=== PATIENT | female | born 1975 | race Caucasian/White ===

== ENCOUNTER → 2021-05-21 | Outpatient (CLI) | payer OTHER ==
[~2021-05-21] MED LIST: ANAPROX PO; AROMASIN25 MG PO; BACLOFEN 10 MG10 MG PO; BACLOFEN20 MG PO; CALCIUM500 MG PO; CELEXA40 MG PO; CIPROFLOXACIN500 M1 PO; CLONAZEPAM 0.50.5 M1 PO; GARAMYCIN5 ML OP; HYDROCODON-ACE1 EAC5 PO; HYDROXYZINE HCL25 M1 PO; IBUPROFEN 600600 M1 PO; LEXAPRO 10 MG T10 M1 PO; LIPITOR10 MG PO; LORTAB 5 MG/5001 TAB PO; MOBIC15 MG PO; NEURONTIN 300M300 M2 PO; NORCO 5-325 TA1 EACH PO; NORFLEX100 MG PO; ONDANSETRON ODT4 MG PO; OXYCODONE HCL20 M1 PO; OXYCONTIN20 M1 PO; RITALIN20 MG PO; TRIAMCINOLONE10 G1; VICODIN; VIIBRYD10 MG PO; VITAMIN D 5050000 I1 PO; XANAX 0.25 MG0.25 MG PO; ZANAFLEX4 M1 PO; ZOFRAN ODT4 MG PO
== END ==
LOC: LAB 05:37
PROVIDERS: ATTEND Student in an Organized Health Care Education/Training Program
DX: U07.1 COVID-19 (principal)

== ENCOUNTER 2021-05-24 06:07 | Observation (INO) | payer OTHER ==
[~2021-05-24] VITALS: Ht 167.6 cm; Wt 82.6 kg
[2021-05-24 06:49] VITALS: BP 131/78
[2021-05-24 15:57] VITALS: BP 98/57
[2021-05-24 19:53] VITALS: BP 159/89
--- NOTE | 2021-05-25 04:09 | NUR ---
ASSUMED PT CARE THIS PM. PT IS ALERT AND ORIENTED X4. PT HAS DRSG TO THE CHEST WHICH IS C/D/I. PT HAS [address] PT C/O PAIN AND ANXIETY WHICH WASW MANAGED BY MEDS. PT DID NOT VERBALIZE ANY OTHER CONCERNS. PT IS ON RA. FALL PRECAUTIONS IN PLACE. WILL CONTINUE TO MONITOR.
[2021-05-25 08:54] VITALS: BP 163/91
[2021-05-25] MEDS ORDERED: PERCOCET PO (10:28)
--- NOTE | 2021-05-25 11:25 | NUR ---
CARE TAKEN OVER FOR PATIENT THIS MORNING. NO COMPLAINTS AT THAT TIME. PATIENT IS AMBULATING WITH STAND BY ASSISTANCE TO BATHROOM WITHOUT ISSUES. SPOKE WITH MILLER [facility] FLOUR AND PATIENT WILL BE DISCHARAGED TO A FACILITY. TRANSPORTATION WAS SET UP FOR 1330.
--- NOTE | 2021-05-25 11:31 | NUR ---
PATIENT CARE TAKEN OVER THIS AM. PATIENT CALLING OUT FOR PAIN MEDICATION. PATIENT TOLERATING FOOD, AND AMBULATION AROUND ROOM TO BATHROOM. AFTER SPEAKING WITH SURGEON PATIENT WILL BE DISCHARGED HOME.
[2021-05-25 11:48] VITALS: BP 163/91
--- NOTE | 2021-05-26 14:43 | O ---
[facility] [place] [address] OPERATIVE REPORT Name: JULIETTE ZAVALA Room #: 442-P [facility] Yao Jauregui#: [id number] Admission: 05/24/21 Attend Phys: Jasmina Stoner DO Discharge: 05/25/21 Date of : 73 Report #: [id number] THIS REPORT FOR: cc: Marlyn Carlton Christine L. DO Fisher,Jasmina Bruno DO ~ DATE OF SERVICE: 05/24/2021 PREOPERATIVE DIAGNOSIS: Metastatic left breast cancer. POSTOPERATIVE DIAGNOSIS: Metastatic left breast cancer. PROCEDURES: 1. Left modified radical mastectomy. 2. Prophylactic right simple mastectomy. SURGEON: Jasmina Stoner DO ANESTHESIA: General endotracheal. SPECIMENS: 1. Left breast. 2. Left axillary contents. 3. Right breast. DRAINS: LUCINA drain x3. (1. Left axilla. 2. Left breast. 3. Right breast). COMPLICATIONS: None. ESTIMATED BLOOD LOSS: 200 mL. INDICATIONS FOR PROCEDURE: The patient is a 45-year-old female who was referred to me with a history of left metastatic breast cancer with a positive lymph node as well as bony metastasis. The patient has undergone neoadjuvant chemotherapy. She was presented from my office for left mastectomy with axillary dissection and prophylactic right mastectomy. She was explained the procedure including risks, benefits and alternatives. All questions were answered to the patient's satisfaction. Informed consent was obtained. DESCRIPTION OF PROCEDURE: After the patient was brought back to the operating room and placed in supine position. General anesthesia was induced. SCDs were placed on bilateral extremities and prophylactic antibiotics were administered. Next, after a timeout was performed, after the chest wall was prepped and draped [facility] [address] [place] [address] OPERATIVE REPORT Name: JULIETTE ZAVALA Room #: 442-P [facility] Yao Jauregui#: [id number] Admission: 05/24/21 Attend Phys: Jasmina Stoner DO Discharge: 05/25/21 Date of : 73 Report #: [id number] in the usual sterile fashion. I used a marking pen and created elliptical gunderson around each breast and nipple areolar complex in order to have a symmetric scars. The left breast and axilla were marked in the preoperative holding area to indicate the site of cancer and site of need for axillary dissection. Next, the right breast was toweled off with blue towels and attention was first turned towards the left breast. Using a 10 blade scalpel, the elliptical incision was created. Dissection was carried down through subcutaneous tissues using Bovie cautery. Using skin hooks, the superior flaps were created using Bovie cautery. Hemostasis was achieved using both Bovie cautery as well. Once the dissection was carried down to the level of the lateral border of the sternum as well as the level of the clavicle, the inferior flap was created in a similar fashion to the level of the inferior and mammary fold. Dissection was then carried in a medial lateral fashion, dissecting the breast tissue from the chest wall, taking the pectoralis fascia with the specimen. Once the specimen was dissected laterally, the axillary tail was also removed. The lateral aspect of the pectoralis major muscle was identified and the breast was removed in its entirety. The specimen was then marked with a single stitch marking the axillary tail. This was sent as a first specimen labeled left breast. I did send the specimen to mammography and an image did confirm that the patient's known cancer site, which was previously marked with a radiographic clip was indeed within the specimen. At this time, I did proceed with the left axillary dissection. The axillary fat pad was encountered. I was able to visualize superiorly to the left axillary vein as well as to the pectoralis muscle and latissimus dorsi both the long thoracic nerve and the thoracodorsal nerve were identified and preserved throughout the dissection. There were 2 palpable lymph nodes larger than a centimeter, which were retained within the specimen. I did palpate the axillary contents. Once the fat pad was removed using Harmonic device as for hemostasis. Once this was removed, it was sent to mammography as well as she had a previously known positive lymph node. I was not able to visualize a radiographic clip within the specimen. Again, I palpated the axilla and again I was unable to identify any further lymph nodes palpated within the axilla. At this time, two 19-Thai drains fully fluted drains were brought out through the lateral inframammary fold. Drain #1 was cut and placed within the axilla. Drain tube was then placed along the inferior flap of the mastectomy site and was then looped to the superior flap. The area was copiously irrigated with saline and hemostasis was noted to be excellent. At this time, the drain stitches were then placed with 2-0 nylon suture. I then closed the incision with 3-0 Vicryl in a deep dermal layer and 4-0 Monocryl in a running subcuticular manner with Dermabond overlying the incision site. Next, at this time, the left chest was then draped out with towels and attention was then turned towards the right prophylactic mastectomy site. All instruments were exchanged for retained instruments and I did exchange my gloves and gown at this time. The simple mastectomy proceeded in a similar fashion using a #10 blade scalpel to create the elliptical incision. Dissection was carried down through the subcutaneous tissues using Bovie cautery. Bovie cautery was used to create [facility] [address] [place] [address] OPERATIVE REPORT Name: JULIETTE ZAVALA Room #: 442-P [facility] Yao Wyatt.#: [id number] Admission: 05/24/21 Attend Phys: Jasmina Stoner DO Discharge: 05/25/21 Date of : 73 Report #: [id number] both the superior and inferior flaps, paying careful attention to the right chest wall Port-A-Cath catheter. This did appear to be well incorporated into the subcutaneous tissues and was not involved in the breast tissue itself. Therefore, the capsule remained intact. Dissection of the right breast was carried out to the lateral border of the sternum as well as to the level of the clavicle, inferior mammary fold and the latissimus dorsi and pectoralis major lateral border. The breast tissue was then removed in a medial lateral fashion as done so on the on the contralateral side. Once the breast tissue was removed, it was marked with a single stitch in the axillary tail. The area was then copiously irrigated with saline. Hemostasis was noted to be excellent. A 19-Thai fully fluted LUCINA drain was then brought out through the lateral aspect of the inframammary fold. The drain was then secured with a 2-0 nylon drain stitch. The incision site was then reapproximated in a deep dermal 3-0 Vicryl and a 4-0 Monocryl running subcuticular stitch. Dermabond was applied for sterile dressing. All sponge and needle count was reported as correct at the end of the case. Estimated blood loss was 200 mL. The patient tolerated the procedure well without any complications. A 4 x4 fluffs, ABD dressings were then applied as well as drain sponges around the drain sites themselves. The three LUCINA drains were labeled #1, #2, #3 with #1 being in the left axilla, #2 within the left breast mastectomy site and #3 within the right mastectomy site. She was awakened from anesthesia in, was taken to the PACU in stable condition for further recovery. <ELECTRONICALLY SIGNED> By: Jasmina Stoner DO 05/26/21 1443 1443 1732 Jasmina Stoner DO /nt
--- NOTE | 2021-05-27 15:07 | PATH ---
[facility] [place] [address] PATHOLOGY RPT PROCEDURE Name: TORIE AZVALA Room #: 442-P [facility] Yao M.RMat#: [id number] Admission: 05/24/21 Date of : 73 Discharge: 05/25/21 Report #: [id number] Path Case #: [id number] [facility] Accession Number: [id number] . 01 Material submitted: . PART A: breast - LEFT BREAST, STITCH ALEXANDER AXILLARY TAIL. Modifiers: left, axillary tail PART B: axillary tail of breast - LEFT AXILLARY CONTENTS. Modifiers: left PART C: breast - RIGHT BREAST STITCH ALEXANDER AXILLARY TAIL. Modifiers: right, axillary tail . 01 Clinical history: . MASTECTOMY, MODIFIED RADICAL UNILAT AXILLARY NODE DISSECTION BREAST CANCER . HISTORY OF INVASIVE DUCTAL CARCINOMA, HISTOLOGIC GRADE II, WITHIN THE LEFT BREAST AT THE 12:00 AND 1:00 POSITIONS. IN ADDITION, LEFT AXILLARY LYMPH NODE AND BONE MARROW BIOPSY SHOWED METASTATIC CARCINOMA. ER/LA/HER2 POSITIVE, Ki-67-49%. STAGE IV TRIPLE POSITIVE BREAST CANCER. . STATUS POST TCHP, CYCLE 6 03/23/2021 . BREAST ULTRASOUND 10/19 IMPRESSION: "LEFT BREAST MALIGNANCY IS PRESENT WITHIN AT LEAST TO THE 12:00 REGION BUT MOST LIKELY PRESENT THROUGHOUT THE AREA OF ABNORMAL HYPOECHOGENICITY SEEN THROUGHOUT THE LARGE PORTION OF THE UPPER OUTER QUADRANT OF THE LEFT BREAST, SPANNING OVER AT LEAST 9.5 CM IN REGION". . 02 Diagnosis: A. Left breast, mastectomy: - Invasive ductal carcinoma, histologic grade II, with positive posterior margin. - Ductal carcinoma in situ, high-grade. - See comment. . B. Lymph nodes (12), left axillary contents, dissection: - There is no evidence of carcinoma within twelve lymph nodes (0/12) . C. Breast, right, mastectomy: - Radial sclerosing lesion. - Negative for malignancy. . (SCA:vernon; 05/26/2021) MBR 05/27/2021 0945 Local . [address] [address] PATHOLOGY RPT PROCEDURE Name: TORIE ZAVALA Room #: 442-P [facility] Yao Jauregui#: [id number] Admission: 05/24/21 Date of : 73 Discharge: 05/25/21 Report #: [id number] Path Case #: [id number] Comment: A. CASE SUMMARY: (INVASIVE CARCINOMA OF THE BREAST: Resection) Standard(s): AJCC-UICC 8 . Procedure ___ Total mastectomy (including nipple-sparing and skin-sparing mastectomy) . Specimen Laterality ___ Left . +Tumor Site ___ Upper outer quadrant ___ Lower outer quadrant ___ Lower inner quadrant Specify Clock Position ___ 12:00, 2 cm from nipple ___ 1:00, 10 cm from nipple . Histologic Type ___ Invasive carcinoma of no special type (ductal) . Histologic Grade ([place] Histologic Score) Glandular (Acinar) / Tubular Differentiation ___ Score 3 (less than 10% of tumor area forming glandular / tubular structures) . Nuclear Pleomorphism ___ Score 3 (Vesicular nuclei, often with prominent nucleoli, exhibiting marked variation in size and shape, occasionally with very large and bizarre forms) . Mitotic Rate ___ Score 2 . Overall Grade ___ Grade 3 (score of 8) . Tumor Size ___ Greatest dimension of largest invasive focus greater than 1 mm: At least 90 mm grossly, and at least 95 mm per imaging . Ductal Carcinoma In Situ (DCIS) ___ Present . Tumor Extent ___ Not applicable (skin, nipple, and skeletal muscle are absent OR are [address] [address] PATHOLOGY RPT PROCEDURE Name: SALLYTORIESACHA LOPEZ Room #: 442-P [facility] Yao Jauregui#: [id number] Admission: 05/24/21 Date of : 73 Discharge: 05/25/21 Report #: [id number] Path Case #: [id number] uninvolved) . Treatment Effect in the Breast ___ No definite response to presurgical therapy in the invasive carcinoma . Treatment Effect in the Lymph Nodes ___ Not applicable . MARGINS Margin Status for Invasive Carcinoma Margin(s) Involved by Invasive Carcinoma ___ Posterior: Multifocal . REGIONAL LYMPH NODES Regional Lymph Node Status ___ Regional lymph nodes present ___ All regional lymph nodes negative for tumor Total Number of Lymph Nodes Examined ___ Exact number: 12 Number of Sparkill Nodes Examined ___ Exact number: 0 . DISTANT METASTASIS Distant Site(s) Involved, if applicable ___ Other: Reportedly bone marrow involvement . PATHOLOGIC STAGE CLASSIFICATION (pTNM, AJCC 8th Edition) TNM Descriptors ___ m (multiple foci of invasive carcinoma) ___ y (post-treatment) . pT Category ___ pT3: Tumor greater than 50 mm in greatest dimension . Regional Lymph Nodes Modifier ___ (f): Selvin metastasis confirmed by fine needle aspiration or core needle biopsy (reportedly present) . pN Category ___ pN0: No regional lymph node metastasis identified (in present case) or ITCs only . pM Category ___ Not applicable - pM cannot be determined from the submitted specimen(s) . SPECIAL STUDIES Estrogen Receptor (ER) Status [address] [address] PATHOLOGY RPT PROCEDURE Name: TORIE ZAVALA Room #: 442-P [facility] Yao Jauregui#: [id number] Admission: 05/24/21 Date of : 73 Discharge: 05/25/21 Report #: [id number] Path Case #: [id number] ___ Positive +Percentage of Cells with Nuclear Positivity ___ Specify %: 58.3% . Progesterone Receptor (PgR) Status ___ Positive +Percentage of Cells with Nuclear Positivity# ___ Specify %: 42.10% . HER2 (by immunohistochemistry) ___ Positive (Score 3+) . Ki-67 Percentage of Positive Nuclei: 49.7% . +Testing Performed at outside institution on biopsy specimen . COMMENT: This case was discussed with Dr. Stoner's staff ([facility]), who also kindly provided history and imaging results. . This case was co-reviewed by Dr. Ananya Betancourt who agrees with the diagnosis on 05/26/2021. . (SCA:vernon; 05/26/2021) . 02 Electronically signed: . Castillo Wong DO, Pathologist NPI- [id number] . 01 Gross description: . A. The specimen is received in formalin, labeled "Torie Zavala, left breast, stitch alexander axillary tail". It consists of a 1153 g, 22.0 x 24.0 x 6.2 cm, previously oriented, left modified radical mastectomy specimen, with a stitch designating the axillary tail. The specimen displays a 20.6 x 14.6 cm, jones-pink and unremarkable skin ellipse, with a 6.5 x 5.5 cm jones and wrinkled areola, and a 2.0 x 1.5 x 0.4 cm everted, jones nipple. The specimen is differentially inked as follows: . Blue = superficial superior Green = superficial inferior Black = deep The specimen is serially sectioned to reveal 2, jones-white, indurated, ill-defined lesions. Lesion 1 measures 0.7 x 0.5 x 0.5 cm, and is located at 12:00, 6.0 cm from the closest superior superficial margin, 6.5 cm from the closest deep margin, 6.0 cm from the closest inferior superficial margin, 3.0 cm from the anterior skin. Lesion 2 measures 1.1 x 0.6 x 0.5 cm, and is located 1:00, 7.0 cm from the closest superior superficial margin, 7.5 cm from the closest inferior superficial margin, 7.0 cm from the closest deep margin, and 3.5 cm from the anterior skin, and 1.[address] [address] PATHOLOGY RPT PROCEDURE Name: TORIE ZAVALA Room #: 442-P [facility] Juventino#: [id number] Admission: 05/24/21 Date of : 73 Discharge: 05/25/21 Report #: [id number] Path Case #: [id number] from lesion 1. A biopsy clip is adjacent to lesion 2. The upper and lower outer quadrants display an ill-defined, 9.0 x 4.0 x 1.7 cm area of jones-white, indurated, fibrous tissue with scattered jones-white to yellow calcifications located abutting the deep margin. The remaining uninvolved tissue parenchyma is comprised of 70% yellow lobulated adipose tissue and 30% white dense fibrous tissue. Parts Picker sections are submitted as follows: A1-A2 nipple, entirely A3-A4 lesion 1, entirely (no margins) A5 closest deep margin to lesion 1 A6 closest superior superficial margin to lesion 1 A7 closest inferior superficial margin to lesion 1 A8 lesion 2, entirely (no margins) A9 closest deep margin to lesion 2 A10 closest superior superficial margin to lesion 2 A11 closest inferior superficial margin to lesion 2 A12 accounting representative intervening tissue between lesion 1 and lesion 2 A13-A14 accounting representative sections from area of dense fibrous tissue with calcifications A15 fibrous tissue from upper outer quadrant A16 fibrous tissue from lower outer quadrant A17 fibrous tissue from upper inner quadrant A18 fibrous tissue from lower inner quadrant . The specimen was removed from the body at 0906 on 05/24/2021 and placed in formalin at 1157, on the same date. The formalin exposure time is 9 hours and 43 mins. . B. The specimen is received in formalin, labeled "Torie Zavala, left axillary contents". It consists of a 14.0 x 4.0 x 1.7 cm aggregate of jones-yellow, fibroadipose tissue. Dissection yields 12 candidate lymph nodes, ranging in size from 0.2-2.1 cm in greatest dimension. The candidate lymph nodes are entirely submitted as follows: B1 1 whole candidate lymph node, bisected B2 4 whole candidate lymph nodes B3 4 whole candidate lymph nodes B4 1 whole candidate lymph node, bisected B5 1 whole candidate lymph node, bisected B6 1 whole candidate lymph node, bisected . The specimen was removed from the body at 0949 on 05/24/2021 and placed in formalin at 1014, on the same date. The formalin exposure time is 11 hours and 26 mins. . C. The specimen is received in formalin, labeled "Torie Zavala, right breast, stitch alexander axillary tail". It consists of a 985 g, 25.0 x 23.5 x 4.4 cm, previously oriented, right modified radical mastectomy specimen, [address] [address] PATHOLOGY RPT PROCEDURE Name: TORIE ZAVALA Room #: 442-P [facility] Yao Jauregui#: [id number] Admission: 05/24/21 Date of : 73 Discharge: 05/25/21 Report #: [id number] Path Case #: [id number] with a stitch designating the axillary tail. The specimen displays a 20.9 x 12.0 cm, jones-pink and unremarkable skin ellipse, with a 5.3 x 4.0 cm jones and wrinkled areola, and a 1.7 x 1.4 x 0.6 cm everted, jones nipple. The specimen is differentially inked as follows: . Blue = superficial superior Green = superficial inferior Black = deep . The specimen is serially sectioned to reveal a fibrofatty cut surface comprised of 70% yellow lobulated adipose tissue and 30% white dense fibrous tissue. Parts Picker sections are submitted as follows: C1-C2 nipple, entirely C4 fibrous tissue from upper inner quadrant C5 fibrous tissue from lower inner quadrant C6 fibrous tissue from upper outer quadrant C7 fibrous tissue from lower outer quadrant . The specimen was removed from the body at 1059 on 05/24/2021 and placed in formalin at 1024, on the same date. The formalin exposure time is 10 hours and 16 mins. ([facility]; 05/24/2021) [facility] 05/27/2021 0945 Local . 02 Pathologist provided ICD-10: C50.812, D05.12, N64.89 . 02 CPT . 263000, 349245 Specimen Comment: A courtesy copy of this report has been sent to [phone], [phone] Specimen Comment: [id number] Specimen Comment: Report sent to / DR JEROME Specimen Comment: A duplicate report has been generated due to demographic updates. Performed at: 01 [facility] [address] [id number] MD Bandar Broussard MD Phone: [phone] Performed at: 02 [place] [id number] [address] [id number] MD Asim Green MD Phone: [phone]
== END 2021-05-25 12:10 | disposition home or self-care (01) ==
LOC: PRE → TBA 06:07 → 4S 06:07 → PRE 09:37 → 4S 15:23 → PRE 16:24 → 4S 05-25 12:10
PROVIDERS: ADMIT Surgery; ATTEND Surgery
DX: C50.912 Malignant neoplasm of unspecified site of left female breast (principal); Z20.822 Contact with and (suspected) exposure to COVID-19; E78.5 Hyperlipidemia, unspecified; F41.9 Anxiety disorder, unspecified; F32.9 Major depressive disorder, single episode, unspecified; Z87.891 Personal history of nicotine dependence; Z79.899 Other long term (current) drug therapy
CPT/HCPCS: 10195; 50010; 50101; 50386; 50403; 51412; 52190; 54118; 56524; 56525; 56526; 56527; 58585; 62110; 62900; 70005